=== PATIENT | male | born 1945 | race Caucasian/White ===

== ENCOUNTER 2017-11-27 10:35 | Emergency (ER) | payer OTHER, MEDICARE ==
[~2017-11-27] VITALS: Ht 188 cm; Wt 102.2 kg
[~2017-11-27 10:35] MED LIST: ACETAMINOPHEN1 EAC1 PO; ALPHA LIPOIC A100 MG PO; ALTACE10 MG PO; ASCORBIC ACID500 M3 PO; ATORVASTATIN CA80 MG PO; CEFTIN250 MG PO; CENTRUM SILVER1 EAC3 PO; CLONIDINE HCL0.1 MG PO; CLONIDINE HCL0.2 MG PO; DIOVAN320 MG PO; FLEXERIL5 MG PO; FUROSEMIDE20 MG PO; FUROSEMIDE40 MG PO; HYDROCHLOROTHIA25 MG PO; HYDROCHLOROTHIA50 MG PO; LASIX20 MG PO; LASIX40 MG PO; LIPITOR80 MG PO; LOSARTAN POTAS100 MG PO; NIACIN100 MG PO; NITROSTAT0.4 MG SL; NORVASC10 MG PO; NOVOLIN N100 UNITS/ SC; PRADAXA150 MG PO; TYLENOL EXTRA500 MG PO; TYLENOL PM EX-1 EACH PO; VALIUM5 MG PO
[2017-11-27] MEDS ORDERED: FLEXERIL10 MG PO (12:17)
[2017-11-27] MEDS ORDERED: LIDODERM 5% P1 PATCH TD (12:17)
[2017-11-27] MEDS ORDERED: MOTRIN800 MG PO (12:17)
[2017-11-27 13:24] VITALS: BP 164/86
== END 2017-11-27 13:27 | disposition home or self-care (01) ==
LOC: EME 10:35
DX: M54.32 Sciatica, left side (principal); E11.9 Type 2 diabetes mellitus without complications; I10 Essential (primary) hypertension; Z79.4 Long term (current) use of insulin; Z88.6 Allergy status to analgesic agent; Z88.0 Allergy status to penicillin
CPT/HCPCS: 99281; 99284; J1100; J1885